=== PATIENT | female | born 1930 | race Caucasian/White ===

== ENCOUNTER 2018-05-20 08:10 | Outpatient (CLI) | payer MEDICARE ==
[2018-05-20] MEDS ORDERED: ADENOSINE 60 MG/20 ML VIAL ONE (13:15)
--- NOTE | 2018-05-20 13:19 | NM ---
NUCLEAR MEDICINE CARDIAC STRESS TEST WITH EJECTION FRACTION: History: Chest pain. Comparison: None. FINDINGS: Stress and rest performed after the intravenous administration of 33.9 mCi Technetium 99M Sestamibi. There is normal left ventricular uptake of radiotracer. Ejection fraction is 90%. Wall motion is norm al. No scar or ischemia. IMPRESSION: Normal exam. POS: [facility]
== END 2018-05-20 08:11 | disposition home or self-care (01) ==
LOC: NM 08:10
PROVIDERS: ATTEND Internal Medicine
DX: R07.9 Chest pain, unspecified (principal)
CPT/HCPCS: 78452; 93017; A9500